=== PATIENT | male | born 1965 | race Caucasian/White ===

== ENCOUNTER 2016-06-07 16:33 | Emergency (ER) | payer OTHER ==
[~2016-06-07] VITALS: Ht 170.1 cm; Wt 81.6 kg
[~2016-06-07 16:33] MED LIST: CIPRO500 MG PO; HUMALOG100 U/ML SC; INSULIN SYRING1 EAC1 MC; LANTUS100 U/ML SC; LEVAQUIN750 M1 PO; LOTRISONE CREAM15 GM T; NAPROSYN500 MG PO; PROTONIX40 MG PO; TEST STRIPS1 EACH MC; ZITHROMAX250 MG PO; [UNRECOGNIZED DRUG - OTHER] MC
[2016-06-07 17:17] LABS: BILIRUBIN NEGATIVE (NEGATIVE); BLOOD NEGATIVE (NEGATIVE); CLARITY CLEAR (CLEAR); COLOR YELLOW (YELLOW); GLUCOSE TRACE (NEGATIVE); KETONE NEGATIVE (NEGATIVE); LEUKO ESTERASE NEGATIVE (NEGATIVE); NITRITE NEGATIVE (NEGATIVE); PH 5.5 (5.0-9.0); PROTEIN NEGATIVE (NEGATIVE); SPECIFIC GRAVITY <= 1.005 (1.005-1.030); UROBILINOGEN 0.2 E.U./dl (0.2-1.0)
[2016-06-07 17:31] LABS: RBC 0-2 rbc/hpf (0-2); URINE REFLEX COMMENT NO (NO)
[2016-06-07] MEDS ORDERED: NAPROSYN500 MG PO (18:08)
[2016-06-07] MEDS ORDERED: VIBRAMYCIN100 MG PO (18:08)
== END 2016-06-07 18:13 | disposition home or self-care (01) ==
LOC: ED 16:33
PROVIDERS: Nurse Practitioner Family
DX: N45.1 Epididymitis (principal); Z88.1 Allergy status to other antibiotic agents; Z91.041 Radiographic dye allergy status

== ENCOUNTER 2016-07-31 01:40 | Emergency (ER) | payer OTHER ==
[~2016-07-31] VITALS: Ht 170.1 cm; Wt 83.9 kg
[~2016-07-31 01:40] MED LIST changes: +VIBRAMYCIN100 MG PO
[2016-07-31] MEDS ORDERED: PERCOCET 325 MG1 TA2 PO (04:04)
== END 2016-07-31 05:11 | disposition home or self-care (01) ==
LOC: ED 01:40
DX: S20.212A Contusion of left front wall of thorax, initial encounter (principal); Z88.1 Allergy status to other antibiotic agents; Z91.041 Radiographic dye allergy status; W18.30XA Fall on same level, unspecified, initial encounter; Z91.81 History of falling; Y93.89 Activity, other specified; Y92.9 Unspecified place or not applicable; Y99.9 Unspecified external cause status

== ENCOUNTER 2017-07-31 08:25 | Emergency (ER) | payer OTHER ==
[~2017-07-31] VITALS: Ht 170.1 cm; Wt 80.7 kg
[~2017-07-31 08:25] MED LIST changes: +PERCOCET 325 MG1 TA2 PO
[2017-07-31] MEDS ORDERED: NAPROSYN500 MG PO (09:06)
== END 2017-07-31 09:12 | disposition home or self-care (01) ==
LOC: ED 08:25
DX: M26.621 Arthralgia of right temporomandibular joint (principal); E11.65 Type 2 diabetes mellitus with hyperglycemia; Z88.1 Allergy status to other antibiotic agents; Z91.041 Radiographic dye allergy status

== ENCOUNTER 2017-09-23 23:24 | Emergency (ER) | payer OTHER ==
[~2017-09-23] VITALS: Ht 170.1 cm; Wt 79.8 kg
[2017-09-24] MEDS ORDERED: Motrin,Rufen800 MG PO (02:05)
== END 2017-09-24 02:09 | disposition home or self-care (01) ==
LOC: ED 23:24
DX: S80.02XA Contusion of left knee, initial encounter (principal); S00.03XA Contusion of scalp, initial encounter; E11.9 Type 2 diabetes mellitus without complications; Z88.1 Allergy status to other antibiotic agents; Z91.041 Radiographic dye allergy status; W01.198A Fall on same level from slipping, tripping and stumbling with subsequent striking against other object, initial encounter; Y93.89 Activity, other specified; Y92.091 Bathroom in other non-institutional residence as the place of occurrence of the external cause; Y99.8 Other external cause status

== ENCOUNTER 2018-03-23 12:56 | Emergency (ER) | payer OTHER ==
[~2018-03-23] VITALS: Ht 170.1 cm; Wt 81.6 kg
[~2018-03-23 12:56] MED LIST changes: +Motrin,Rufen800 MG PO
== END 2018-03-23 13:38 | disposition home or self-care (01) ==
LOC: ED 12:56
DX: N50.812 Left testicular pain (principal); R11.0 Nausea; E11.9 Type 2 diabetes mellitus without complications; Z91.041 Radiographic dye allergy status; Z88.1 Allergy status to other antibiotic agents; Z79.899 Other long term (current) drug therapy

== ENCOUNTER → 2019-02-07 | Outpatient (CLI) | payer OTHER | END | disposition home or self-care (01) | LOC: RAD 11:44 | DX: M54.5 Low back pain (principal) ==

== ENCOUNTER 2019-05-25 17:21 | Emergency (ER) | payer OTHER ==
[~2019-05-25] VITALS: Ht 170.1 cm; Wt 77.6 kg
[2019-05-25 19:39] LABS: BASO # 0.1 10*3/uL (0.0-0.1); BASO % 0.7 % (0.0-1.0); EOS # 0.2 10*3/uL (0.0-0.4); HEMOGLOBIN 15.8 g/dl (14.0-18.0); LYMPH # 1.5 10*3/uL (1.3-4.4); LYMPH % 19.4 % (27.0-41.0); MEAN CELL VOLUME 87.8 fl (80.0-94.0); MEAN CORPUSCULAR HGB 30.2 pg (27.0-31.0); MEAN CORPUSCULAR HGB CONC 34.3 g/dl (33.0-37.0); MEAN PLATELET VOLUME 10.5 fl (9.6-12.3); MONO # 0.7 10*3/uL (0.1-1.0); MONO % 9.3 % (3.0-9.0); NEUT # 5.2 10*3/uL (2.3-7.9); NEUT % 67.3 % (47.0-73.0); PLATELET COUNT AUTOMATED 254 10*3/uL (130-400); RED BLOOD COUNT 5.24 10*6/uL (4.50-5.90); RED CELL DISTRI WIDTH 12.6 % (0-14.5); WHITE BLOOD COUNT 7.6 10*3/uL (4.8-10.8)
[2019-05-25 19:54] LABS: ALBUMIN 3.6 gm/dl (3.1-4.5); ALKALINE PHOSPHATASE 76 U/L (45-117); BUN 14 mg/dl (7-24); CHLORIDE 103 mmol/L (98-107); CREATININE 0.84 mg/dL (0.70-1.30); LIPASE 125 U/L (73-393); SGOT/AST 12 IU/L (3-35); SGPT/ALT 29 U/L (12-78); SODIUM 137 mmol/L (136-145); TOTAL PROTEIN 7.2 gm/dL (6.4-8.2)
[2019-05-25 19:56] LABS: TROPONIN I < 0.015 ng/ml (<0.045)
[2019-05-25] MEDS ORDERED: TESSALON PERLE100 M1 PO (20:00)
[2019-05-25] MEDS ORDERED: MUCINEX ER600 MG PO (20:14)
== END 2019-05-25 20:20 | disposition home or self-care (01) ==
LOC: ED 17:21
PROVIDERS: Nurse Practitioner Family
DX: J06.9 Acute upper respiratory infection, unspecified (principal); E11.9 Type 2 diabetes mellitus without complications; Z88.8 Allergy status to other drugs, medicaments and biological substances; Z79.899 Other long term (current) drug therapy; Z91.041 Radiographic dye allergy status; Z79.4 Long term (current) use of insulin

== ENCOUNTER 2024-07-05 14:56 | Emergency (ER) | payer OTHER ==
[~2024-07-05] VITALS: Wt 66.2 kg
[~2024-07-05 14:56] MED LIST changes: +MUCINEX ER600 MG PO; +TESSALON PERLE100 M1 PO
[2024-07-05] MEDS ORDERED: MORPHINE Sulfate 2 MG/ML SYR IV ONE (15:10)
[2024-07-05] MEDS ORDERED: Ketorolac Tromethamine 30 MG/ML VIAL IV ONE (19:25)
[2024-07-05] MEDS ORDERED: MELOXICAM15 MG PO (19:28)
== END 2024-07-05 19:35 | disposition home or self-care (01) ==
LOC: ED 14:56
DX: R07.81 Pleurodynia (principal); M25.521 Pain in right elbow; M79.661 Pain in right lower leg; M79.662 Pain in left lower leg; Z91.041 Radiographic dye allergy status; Z88.1 Allergy status to other antibiotic agents; Z98.890 Other specified postprocedural states; V03.90XA Pedestrian on foot injured in collision with car, pick-up truck or van, unspecified whether traffic or nontraffic accident, initial encounter; Y93.89 Activity, other specified; Y92.89 Other specified places as the place of occurrence of the external cause; Y99.8 Other external cause status

== ENCOUNTER → 2024-08-28 | Outpatient (CLI) | payer OTHER ==
[~2024-08-28] MED LIST changes: +MELOXICAM15 MG PO
== END | disposition home or self-care (01) ==
LOC: RAD 13:33
PROVIDERS: ATTEND Family Medicine
DX: M47.812 Spondylosis without myelopathy or radiculopathy, cervical region (principal); M25.78 Osteophyte, vertebrae

== ENCOUNTER → 2024-09-11 | Outpatient (CLI) | payer OTHER | END | disposition home or self-care (01) | LOC: RAD 13:39 | PROVIDERS: ATTEND Family Medicine | DX: M48.04 Spinal stenosis, thoracic region (principal); M54.50 Low back pain, unspecified ==